=== PATIENT | female | born 1965 | race Caucasian/White ===

== ENCOUNTER 2024-04-06 19:30 | Emergency (ER) | payer OTHER, SELFPAY ==
[2024-04-06 19:38] VITALS: BP 122/84; PULSE 117; TEMP 37.3; O2SAT 98; BMI 34.9
--- NOTE | 2024-04-06 20:46 | ECG_ITS ---
[facility] Test Date: 2024-04-06 Pat Name: PINKY ARREDONDO Department: Room: - Gender: Female [employer] Di[employer] Registered Nurse: : [id number] Requested By: VINCENT SCHRADER Order Number: [id number] Reading MD: SANDRITA ESCOBAR Measurements Intervals [place] Rate: 115 P: 53 MD: 136 QRS: 60 QRSD: 66 T: 30 QT: 318 QTc: 386 Interpretive Statements 1120 Sinus tachycardia 8102 Low QRS voltage in chest leads 9150 abnormal ECG Compared to ECG 11/02/2020 09:14:38 Myocardial infarct finding now present Electronically Signed On 04-07-2024 7:13:00 EST by SANDRITA ESCOBAR
--- NOTE | 2024-04-06 20:47 | ED.ARRPALP1 ---
HPI - Arrhythmia/Palpitations General Chief Complaint: Arrhythmia/Palpitations Stated Complaint: high heart rate Time Seen by Provider: 04/06/24 20:14 Source: patient Mode of arrival: walk-in Limitations: no limitations History of Present Illness HPI narrative: Patient is a 58-year-old female who presents to the emergency department for palpitations that she noticed this evening. She states when she is up and walking she noticed her heart rate went into the 120s. Laying flat, her heart rate goes down to the 90s. She states she does not drink caffeine, in 2020 she had COVID and found that she had palpitations with caffeine show she stopped drinking it. She has not had any other focal medical complaints or recent illness. She has had no fevers or upper respiratory symptoms, no vomiting or diarrhea. She denies peripheral edema. She has a sensation of palpitations but no specific chest pain or shortness of breath. She does not take any medications at home, she has no other medical problems and denies tobacco abuse. Related Data Allergies Allergy/AdvReac Type Severity Reaction Status Date / Time diphenhydramine (From Allergy Intermediate BRADYCARDIA Verified 04/06/24 19:37 Benadryl) doxycycline Allergy Intermediate Headache Verified 04/06/24 19:37 Review of Systems ROS Constitutional Denies: fever or chills Ears, nose, mouth, and throat Denies: throat pain or nasal congestion Cardiovascular Denies: chest pain Respiratory Denies: shortness of breath Gastrointestinal Denies: nausea, vomiting or diarrhea Musculoskeletal Denies: back pain Integumentary/Breast Denies: rash Neurological Denies: headache, numbness in extremities or weakness in extremities Hematologic/Lymphatic Denies: easy bruising or easy bleeding [facility] Social History Little interest or pleasure in doing things: not at all Feeling down, depressed, or hopeless: not at all Exam Narrative Exam Narrative: Gen.: Awake, alert, in no distress Head: Normocephalic, atraumatic ENT: Moist mucous membranes Respiratory: No respiratory distress, lungs clear bilaterally Cardio: Regular rate and rhythm Gastrointestinal: Abdomen is soft, nondistended and nontender to palpation Extremities: Moves extremities equally Psych: Normal mood and affect Neuro: No focal neuro deficit Skin: Warm, dry, intact Constitutional Vital Signs, click to edit/add: Last Vital Signs Temp 99.2 F 04/06/24 19:38 Pulse 117 H 04/06/24 19:38 Resp 16 04/06/24 19:38 BP 122/84 04/06/24 19:38 Pulse Ox 98 04/06/24 19:38 O2 Del Method Room Air 04/06/24 19:38 Course Vital Signs Vital signs: Vital Signs Temperature 99.2 F 04/06/24 19:38 Pulse Rate 117 H 04/06/24 19:38 Respiratory Rate 16 04/06/24 19:38 Blood Pressure 122/84 04/06/24 19:38 Pulse Oximetry 98 04/06/24 19:38 Oxygen Delivery Method Room Air 04/06/24 19:38 Temperature 99.2 F 04/06/24 19:38 Pulse Rate 117 H 04/06/24 19:38 Respiratory Rate 16 04/06/24 19:38 Blood Pressure 122/84 04/06/24 19:38 Pulse Oximetry 98 04/06/24 19:38 Oxygen Delivery Method Room Air 04/06/24 19:38 MDM - Arrhythmia/Palpitations MDM Narrative Medical decision making narrative: Initial EKG performed in triage shows sinus tachycardia. Patient with no active chest pain or shortness of breath at this time. 8: IV fluids initiated, vital signs are stable at this time. The remainder of the lab workup is pending including respiratory swabs and chest x-ray. Case is turned over to attending physician at this time. SHARED APC VISIT, PHYSICIAN ATTESTATION: [id number] I performed a substantive part of the MDM during the patient?s E/M visit. I personally evaluated and examined the patient. I personally made or approved the documented management plan and acknowledge its risk of complications. JK 10:10 pm her workup is negative including the chest x-ray and blood work. She was given IV fluids and her heart rate came down and she is able to be discharged home. Treatment diagnosis and follow-up were discussed with the patient. Differential Diagnosis Differential diagnosis: Likely palpitations, anxiety and sinus tachycardia Medical Records Attestation: I reviewed the patient's medical records. Lab Data Attestation: I reviewed the patient's lab results. Labs: Lab Results 04/06/24 04/06/24 Range/Units 20:35 21:01 WBC 10.9 (4.0-11.0) 10^3/uL RBC 4.83 (4.20-5.40) 10^6/uL Hgb 14.7 (12.0-16.0) g/dL Hct 42.9 (36.0-48.0) % MCV 88.8 (81.0-99.0) fL MCH 30.4 (26.7-34.0) pg MCHC 34.3 (29.9-35.2) g/dL RDW 12.9 (11.0-15.0) % Plt Count 284 (150-450) 10^3/uL MPV 9.7 (9.5-13.5) fL Neut % (Auto) 67.6 (43.0-75.0) % Lymph % (Auto) 23.9 (20.5-60.0) % [place] % (Auto) 6.7 (1.7-12.0) % Eos % (Auto) 1.2 (0.9-7.0) % Baso % (Auto) 0.4 (0.2-2.0) % Neut # (Auto) 7.4 H (1.4-6.5) 10^3/uL Lymph # (Auto) 2.6 (1.2-3.8) 10^3/uL [place] # (Auto) 0.7 (0.3-0.8) 10^3/uL Eos # (Auto) 0.1 (0.0-0.7) 10^3/uL Baso # (Auto) 0.0 (0.0-0.1) 10^3/uL Abs Immat Gran (auto) 0.02 (0.00-0.03) 10^3/uL Imm/Tot Granulo (auto) 0.2 (0.0-0.5) % PT 10.1 (9.0-11.6) sec INR 0.95 D-Dimer 0.23 (<=0.59) mg/L FEU Sodium 137 (136-145) mmol/L Potassium 3.8 (3.5-5.1) mmol/L Chloride 102 (98-107) mmol/L Carbon Dioxide 25.0 (21.0-32.0) mmol/L Anion Gap 13.8 BUN 17.0 (7.0-18.0) mg/dL Creatinine 0.97 (0.55-1.02) mg/dL Est GFR ( Amer) >60 (>=60 mL/min/1.73m^2) Est GFR (Non-Af Amer) 59 L (>=60 mL/min/1.73m^2) BUN/Creatinine Ratio 17.5 Glucose 186 H (74-106) mg/dL Lactate 2.0 (0.4-2.0) mmol/L Calcium 9.4 (8.5-10.1) mg/dL Magnesium 2.1 (1.8-2.4) mg/dL Total Bilirubin 0.3 (0.2-1.0) mg/dL AST 9 L (15-37) U/L ALT 32 (14-59) U/L Alkaline Phosphatase 85 (46-116) U/L Troponin I High Sens 9.4 (4.0-51.3) pg/mL NT-Pro-B Natriuret Pep 22.0 (<=900.0) pg/mL Total Protein 7.4 (6.4-8.2) g/dL Albumin 3.7 (3.4-5.0) g/dL Globulin 3.7 g/dL Albumin/Globulin Ratio 1.0 TSH 2.550 (0.358-3.740) uIU/mL Influenza Type A Ag Negative Influenza Type B Ag Negative SARS-CoV-2 Ag (CV2AG) Negative (NEGATIVE) Imaging Data Chest x-ray: Radiologist's impression: Chest x-ray per radiologist shows no acute process seen in the chest ECG Data Attestation: I personally reviewed and interpreted this ECG as follows: (Sinus tachycardia at a rate of 115, no acute ST elevation or ectopy. EKG reviewed by attending physician) Discharge Plan Discharge Chief Complaint: Arrhythmia/Palpitations Clinical Impression: Palpitations, Dehydration Patient Disposition: Home, Self-Care Time of Disposition Decision: 22:12 Condition: Good Mode of Transportation: Private Vehicle Print Language: Wolof Instructions: Heart Palpitations (ED), Dehydration (ED) Referrals: Zari Girard MD [Primary Care Provider] - 1 week
[2024-04-06 20:53] LABS: Basophils Percent Auto 0.4 % (0.2-2.0); Eosinophils Absolute Auto 0.1 10^3/uL (0.0-0.7); Eosinophils Percent Auto 1.2 % (0.9-7.0); Hematocrit 42.9 % (36.0-48.0); Hemoglobin 14.7 g/dL (12.0-16.0); Immature Granulocytes Abs Auto 0.02 10^3/uL (0.00-0.03); Immature Granulocytes Pct Auto 0.2 % (0.0-0.5); Lymphocytes Absolute Auto 2.6 10^3/uL (1.2-3.8); Lymphocytes Percent Auto 23.9 % (20.5-60.0); Mean Corpuscular HGB Conc 34.3 g/dL (29.9-35.2); Mean Corpuscular Hemoglobin 30.4 pg (26.7-34.0); Mean Corpuscular Volume 88.8 fL (81.0-99.0); Mean Platelet Volume 9.7 fL (9.5-13.5); Monocytes Absolute Auto 0.7 10^3/uL (0.3-0.8); Monocytes Percent Auto 6.7 % (1.7-12.0); Neutrophils Absolute Auto 7.4 10^3/uL (1.4-6.5); Neutrophils Percent Auto 67.6 % (43.0-75.0); Platelet Count 284 10^3/uL (150-450); Red Blood Count 4.83 10^6/uL (4.20-5.40); Red Cell Distribution Width 12.9 % (11.0-15.0); White Blood Count 10.9 10^3/uL (4.0-11.0)
[2024-04-06] MEDS: 0.9 % SODIUM CHLORIDE 1,000 ML 999 ML IV (20:57)
[2024-04-06 21:01] LABS: D Dimer 0.23 mg/L FEU (<=0.59); INR 0.95; Prothrombin Time 10.1 sec (9.0-11.6)
[2024-04-06 21:16] LABS: Alanine Aminotransferase 32 U/L (14-59); Albumin Level 3.7 g/dL (3.4-5.0); Alkaline Phosphatase 85 U/L (46-116); Anion Gap 13.8; Aspartate Amino Transferase 9 U/L (15-37); BUN Creatinine Ratio 17.5; Bilirubin Total 0.3 mg/dL (0.2-1.0); Calcium 9.4 mg/dL (8.5-10.1); Chloride 102 mmol/L (98-107); Estimated GFR (African America >60 (>=60 mL/min/1.73m^2); Estimated GFR (Non-African Ame 59 (>=60 mL/min/1.73m^2); Globulin 3.7 g/dL; Glucose 186 mg/dL (74-106); Magnesium 2.1 mg/dL (1.8-2.4); Potassium 3.8 mmol/L (3.5-5.1); Sodium 137 mmol/L (136-145); Total Protein 7.4 g/dL (6.4-8.2)
[2024-04-06 21:17] LABS: Troponin I High Sensitivity 9.4 pg/mL (4.0-51.3)
[2024-04-06 21:19] LABS: Influenza Virus A Antigen Negative; Influenza Virus B Antigen Negative; Internal Control Within Normal Limits; SARS-CoV-2 Ag NEGATIVE (NEGATIVE)
[2024-04-06 22:24] VITALS: BP 133/94; PULSE 89; O2SAT 96
== END 2024-04-06 22:25 | disposition home or self-care (01) ==
PROVIDERS: Physician Assistant; Emergency Provider Emergency Medicine; PCP Family Medicine
DX: R00.2 Palpitations (principal); E86.0 Dehydration; R00.0 Tachycardia, unspecified
CPT/HCPCS: 36415; 71045; 80053; 83605; 83735; 83880; 84443; 84484; 85025; 85378; 85610; 87804; 87811; 93005; 96360; 99285

== ENCOUNTER 2024-11-01 08:32 | Outpatient (OUT) | payer OTHER, SELFPAY ==
--- OUTSIDE RECORDS SUMMARY | 2024-11-01 08:45 | XMS_ITS | CCD ---
Author Organization [facility] Care Team Providers Care Principal Accounts Clerk Name Role Phone CHRISTINA FONSECA Attending Unavailable CHRISTINA FONSECA Admitting Unavailable DR VINCENT SCHRADER Primary Care Unavailable DR MARIE GONCALVES Consulting Unavailable CHRISTINA FONSECA Consulting Unavailable Pawel Lacy DO Primary Care Provider Pawel Lacy DO Attending Provider Pawel Lacy DO Other Provider [phone] Rahat Hernandez MD Attending Provider Pawel Lacy Attending Unavailable Pawel Lacy Primary Care Unavailable Pawel Lacy Admitting Unavailable Allergies Allergy Classification Reported Allergen(s) Allergy Type Date of Onset Reaction(s) Facility (1 source) Sucralfate Drug Allergy 07-25-2015 [facility] Repository (1 source) Doxycycline Drug Allergy 10-26-2024 [facility] Repository Problems Problem Classification Problem Date Documented Da te Episodic/Chronic Administrative/social admission (4 sources) First encounter by subject; Translations: [Persons encountering health services in other specified circumstances] 10-26-2024 Episodic Cardiac dysrhythmias (5 sources) Tachycardia; Translations: [Tachycardia, unspecified] Onset: 10-26-2024 10-26-2024 Episodic Other lower respiratory disease (4 sources) Shortness of breath; Translations: [SHORTNESS OF BREATH] Onset: 11-02-2020 Episodic Other non-traumatic joint disorders (2 sources) Pain in right shoulder; Translations: [Right shoulder pain] 10-26-2024 Episodic Other nutritional; endocrine; and metabolic disorders (4 sources) Body mass index 30+ - obesity; Translations: [Obesity, unspecified] 10-26-2024 Chronic Other screening for suspected conditions (not mental disorders or infectious disease) (12 sources) Patient encounter status; Translations: [Encounter for screening for diabetes mellitus] 10-26-2024 Episodic Spondylosis; intervertebral disc disorders; other back problems (2 sources) Low back pain; Translations: [Lumbar back pain] 10-26-2024 Episodic Unclassified (4 sources) Patient encounter status; Translations: [Z12.11 - Encounter for screening for malignant neoplasm of colon] Viral infection (1 source) COVID-19; Translations: [COVID-19] Onset: 11-06-2020 Results Test Name Value Interpretation Reference Range Facil ity FPG ECG *PCP OFFICE ONLY*on 10-26-2024 FPG ECG *PCP OFFICE ONLY* [facility] [place] [address] [place] [address] Electrocardiograph Report Signed Patient: Shira Whitney MR#: [id number] 8 : 1965 Acct:[id number] Age/Sex: 59 / F ADM Date: 10/26/24 Loc: EKGCAST Room: Type: [facility] Attending Dr: Pawel Lacy DO Ordering Provider: Pawel Lacy DO Date of Service: 10/26/2411/11/930 ECG/FPG ECG *PCP OFFICE ONLY*: R00.0 - Tachycardia, unspecified Copies to: Test Reason : Blood Pressure : */* mmHG Vent. Rate : 89 BPM Atrial Rate : 89 BPM P-R Int : 138 ms QRS Dur : 68 ms QT Int : 368 ms P-R-T Axes : 47 9 26 degrees QTcB Int : 447 ms Normal sinus rhythm Low voltage QRS Cannot rule out Anterior infarct , age undetermined Abnormal ECG No previous ECGs available Confirmed by Rahat Hernandez ([id number]) on 10/26/2024 12:02:12 PM Referred By: Electronically Signed By: Rahat Hernandez Transcribed By: MUS Signed By Rahat Hernandez MD 10/26/24 1202 Normal [facility] CBC AUTO DIFFon 11-02-2020 BASO # 0.0 103/ul Normal 0.0-0.1 [facility] Comment on above: Performed By: #### C BC #### [facility] [address] [place] [address] Dr. Murali Camarillo Basophils/100 WBC (Bld) 0.3 % Normal 0.2-2.0 [facility] Comment on above: Performed By: #### C BC #### [facility] [address] [place] [address] Dr. Murali Camarillo EO # 0.0 103/ul Normal 0.0-0.7 [facility] Comment on above: Performed By: #### C BC #### [facility] [address] [place] [address] Dr. Murali Camarillo Eosinophils/100 WBC (Bld) 0.4 % Critically low 0.9-7.0 [facility] Comment on above: Performed By: #### C BC #### [facility] [address] [place] [address] Dr. Murali Camarillo Erythrocyte distribution width (RBC) [Ratio] 12.9 % Normal 11.0-15.0 [facility] Comment on above: Performed By: #### C BC #### [facility] [address] [place] [address] Dr. Murali Camarillo Hematocrit (Bld) [Volume fraction] 43.9 % Normal 36.0-48.0 [facility] Comment on above: Performed By: #### C BC #### [facility] [address] [place] [address] Dr. Murali Camarillo Hemoglobin (Bld) [Mass/Vol] 14.4 g/dL Normal 12.0-16.0 [facility] Comment on above: Performed By: #### C BC #### [facility] [address] [place] [address] Dr. Murali Camarillo IG # 0.04 10e3/ul Critically high 0.00-0.03 [facility] Comment on above: Performed By: #### C BC #### [facility] [address] [place] [address] Dr. Murali Camarillo IG % 0.5 % Normal 0.0-0.5 [facility] Comment on above: Performed By: #### C BC #### [facility] [address] [place] [address] Dr. Murali Camarillo LYMPH # 1.1 103/ul Critically low 1.2-3.8 [facility] Comment on above: Performed By: #### C BC #### [facility] [address] [place] [address] Dr. Murali Camarillo Lymphocytes/100 WBC (Bld) 13.7 % Critically low 20.5-60.0 [facility] Comment on above: Performed By: #### C BC #### [facility] [address] [place] [address] Dr. Murali Camarillo MANUAL DIFF REQ NO Normal [facility] Comment on above: Performed By: #### C BC #### [facility] [address] [place] [address] Dr. Murali Camarillo MCH (RBC) [Entitic mass] 29.2 pg Normal 26.7-34.0 [facility] Comment on above: Performed By: #### C BC #### [facility] [address] [place] [address] Dr. Murali Camarillo MCHC (RBC) [Mass/Vol] 32.8 g/dL Normal 29.9-35.2 [facility] Comment on above: Performed By: #### C BC #### [facility] [address] [place] [address] Dr. Murali Camarillo MCV (RBC) [Entitic vol] 89.0 fL Normal 81.0-99.0 [facility] Comment on above: Performed By: #### C BC #### [facility] [address] [place] [address] Dr. Murali Camarillo MONO # 0.5 103/ul Normal 0.3-0.8 [facility] Comment on above: Performed By: #### C BC #### [facility] [address] [place] [address] Dr. Murali Camarillo Monocytes/100 WBC (Bld) 6.2 % Normal 1.7-12.0 [facility] Comment on above: Performed By: #### C BC #### [facility] [address] [place] [address] Dr. Murali Camarillo NEUT # 6.3 103/ul Normal 1.4-6.5 [facility] Comment on above: Performed By: #### C BC #### [facility] [address] [place] [address] Dr. Murali Camarillo Neutrophils/100 WBC (Bld) 78.9 % Critically high 43.0-75.0 [facility] Comment on above: Performed By: #### C BC #### [facility] [address] [place] [address] Dr. Murali Camarillo Platelet mean volume (Bld) [Entitic vol] 9.5 fL Normal 9.5-13.5 [facility] Comment on above: Performed By: #### C BC #### [facility] [address] [place] [address] Dr. Murali Camarillo PLT 234 103/ul Normal 150-450 [facility] Comment on above: Performed By: #### C BC #### [facility] [address] [place] [address] Dr. Murali Camarillo RBC 4.93 106/ul Normal 4.20-5.40 [facility] Comment on above: Performed By: #### C BC #### [facility] [address] [place] [address] Dr. Murali Camarillo WBC 7.9 103/ul Normal 4.0-11.0 [facility] Comment on above: Performed By: #### C BC #### [facility] [address] [place] [address] Dr. Murali Camarillo CTA CHEST WO W CONon 021 CTA CHEST WO W CON EXAMINATION: CTA CHEST WO W CON HISTORY: SHORTNESS OF BREATH , cough COMPARISON: No relevant comparison available. TECHNIQUE: Multi-planar CT images were created with IV contrast. Axial, Coronal, and Sagittal images. Dose reduction techniques were achieved by using automated exposure control and/or adjustment of mA and/or kV according to patient size and/or use of iterative reconstruction technique. 3-D reconstruction was performed on a separate workstation. FINDINGS: VASCULATURE: No pulmonary embolism or abnormal opacity. LUNGS: Scattered mild patchy infiltrates bilaterally. Atelectasis versus infiltrates within the posterior lung bases. PLEURA: No mass, effusion, or pneumothorax. DESTINI: No mass or adenopathy. MEDIASTINUM: No mass or adenopathy. CARDIAC: No enlargement, pericardial effusion, or pericardial thickening. AORTA: No aneurysm or dissection. CHEST WALL: No mass or axillary adenopathy. BONES: No bone lesion or fracture. LIMITED ABDOMEN: Fatty infiltration of liver. No suspicious findings. Limited images of the upper abdomen. OTHER: Negative. IMPRESSION: 1. No pulmonary embolism. 2. Mild bilateral patchy infiltrates; atelectasis versus pneumonia. Electronically authenticated by: MARIE GONCALVES Date: 2020-11-02 11:22 Normal [facility] PROF CHEM 8 (BAS METB)on Anion gap [Moles/Vol] 13.0 mmol/L Normal [facility] Comment on above: Performed By: #### B MP #### [facility] [address] [place] [address] Dr. Murali Camarillo Calcium [Mass/Vol] 8.7 mg/dL Normal 8.4-10.2 [facility] Comment on above: Performed By: #### B MP #### [facility] [address] [address] [address] Murali Camarillo Chloride [Moles/Vol] 100 mmol/L Normal 98-107 [facility] Comment on above: Performed By: #### B MP #### [facility] [address] [address] [address] Murali Camarillo CO2 [Moles/Vol] 27.7 mmol/L Normal 22.0-30.0 [facility] Comment on above: Performed By: #### B MP #### [facility] [address] [address] [address] Murali Camarillo Creatinine [Mass/Vol] 0.91 mg/dL Normal 0.52-1.04 [facility] Comment on above: Performed By: #### B MP #### [facility] [address] [address] [address] Murali Camarillo EGFR-AF BAHRAINI >60 Normal >=60 [facility] Comment on above: Performed By: #### B MP #### [facility] [address] [address] [address] Murali Camarillo EGFR-NON AF BAHRAINI >60 Normal >=60 [facility] Comment on above: Performed By: #### B MP #### [facility] [address] [address] [address] Murali Camarillo Glucose [Mass/Vol] 145 mg/dL Critically high 74-106 [facility] Comment on above: Performed By: #### B MP #### [facility] [address] [address] [address] Murali Camarillo Potassium [Moles/Vol] 3.7 mmol/L Normal 3.4-5.0 [facility] Comment on above: Performed By: #### B MP #### [facility] [address] [address] [address] Murali Camarillo Sodium [Moles/Vol] 137 mmol/L Normal 137-145 [facility] Comment on above: Performed By: #### B MP #### [facility] [address] [address] [address] Murali Camarillo Urea nitrogen [Mass/Vol] 8.0 mg/dL Normal 7.0-17.0 [facility] Comment on above: Performed By: #### B MP #### [facility] [address] [address] [address] Murali Camarillo Urea nitrogen/Creatinine [Mass ratio] 8.8 mg/mg Normal [facility] Comment on above: Performed By: #### B MP #### [facility] [address] [address] [address] Murali Camarillo XR CHEST 1 Von 11-02-2020 XR CHEST 1 V EXAMINATION: XR CHEST 1 V HISTORY: SHORTNESS OF BREATH , cough, tachycardia, weakness COMPARISON: No relevant comparison available. FINDINGS: LUNGS: Markedly underexpanded lungs. Trace amount of stranding within left lung base. VASCULATURE: No increased pulmonary vasculature. PLEURA: No pneumothorax, effusion, or pleural thickening. CARDIAC: No cardiomegaly or cardiac silhouette abnormality. MEDIASTINUM: No visible mass or adenopathy. BONES: No fracture or visible bone lesion. OTHER: Negative. IMPRESSION: 1. Low lung volume examination with trace amount of left basilar atelectasis versus infiltrates. Electronically authenticated by: MARIE GONCALVES Date: 2020-11-02 10:07 Normal [facility] Vital Signs Date Time Vital Sign Value Performing Clinician [place] [facility] 10-26-2024 08:43-0400 Body height 165.1 cm Pawel Denihan DO Work Phone: [facility] 10-26-2024 08:43-0400 Body mass index (BMI) [Ratio] 36.9 kg/m2 Pawel Denihan DO Work Phone: [facility] 10-26-2024 08:43-0400 Body weight 100.69 kg Pawel Denihan DO Work Phone: [facility] 10-26-2024 08:43-0400 Diastolic blood pressure 104 mm[Hg] Pawel Denihan DO Work Phone: [facility] 10-26-2024 08:43-0400 Diastolic blood pressure 92 mm[Hg] Pawel Denihan DO Work Phone: [facility] 10-26-2024 08:43-0400 Heart rate 101 /min Pawel Denihan DO Work Phone: [facility] 10-26-2024 08:43-0400 Respiratory rate 18 /min Pawel Denihan DO Work Phone: [facility] 10-26-2024 08:43-0400 SaO2% (BldA) [Mass fraction] 94 % Pawel Denihan DO Work Phone: [facility] 10-26-2024 08:43-0400 SaO2% (BldA) [Mass fraction] 97 % Pawel Denihan DO Work Phone: [facility] 10-26-2024 08:43-0400 Systolic blood pressure 142 mm[Hg] Pawel Denihan DO Work Phone: [facility] 10-26-2024 08:43-0400 Systolic blood pressure 136 mm[Hg] Pawel Denihan DO Work Phone: [facility] Encounters Encounter Date Encounter Type Care Provider Facility Start: 10-26-2024 End: 10-26-2024 ambulatory Pawel Lacy Facility:[facility] Start: 10-26-2024 Non-patient / Non-visit Rahat Hernandez MD -[facility] Work Phone: Start: 10-26-2024 Patient encounter procedure Pawel Lacy -EKG [facility] Start: 10-26-2024 End: 10-26-2024 ambulatory Pawelnolan Lacy DO Work Phone: [facility] Work Phone: Start: 10-26-2024 End: 10-26-2024 Patient encounter procedure Pawel Lilizlucy -FPG [facility] Work Phone: Start: 11-02-2020 End: 11-02-2020 ambulatory CHRISTINA Tye RAYMUNDO Facility: Plan of Treatment Date Care Activity Detail Author Start: 10-26-2024 Patient referral [facility] Work Phone: Start: 10-26-2024 [facility] Comprehensive metabo lic 2000 panel - Serum or Plasma [facility] Holter monitor study [facility] MG Breast - bilateral Screening [facility] Patient referral [facility] Work Phone: Payers Date Payer Category Payer Self-pay 2024 Unknown [id number] 1965 Unknown [id number] 1961 Unknown [id number] Unknown [id number] Social History Date Type Detail Facility Start: 10-26-2024 [facility] Sex Female (finding) [facility] Start: 1965 Sex Assigned At Female F [facility] Evaluation note 10-26-2024 Note Date & Type Note Facility 10-26-2024 Evaluation note Diagnosis Onset Date Resolution Establishing care with new doctor, encounter for acute October 26 025 8:29am Obesity (BMI 35.0-39.9 without comorbidity) acute October 262024 8:29am Screening for cardiovascular condition acute Septemb er 2024 8:29am Screening for diabetes mellitus acute October 26 025 8:29am Tachycardia acute October 8:29am Colon cancer screening noneactive Se ptember 2024 8:29am Breast cancer screening by mammogram noneactive October 26 025 8:29am [facility] Work Phone: Evaluation note 10-26-2024 Note Date & Type Note Facility 10-26-2024 Evaluation note Diagnosis Onset Date Resolution Establishing care with new doctor, encounter for acute October 26 8:29am Obesity (BMI 35.0-39.9 without comorbidity) acute October 262024 8:29am Screening for cardiovascular condition acute Sept er 2024 8:29am Screening for diabetes mellitus acute October 26 025 8:29am Tachycardia acute October 8:29am Colon cancer screening noneactive Se ptember 2024 8:29am Breast cancer screening by mammogram noneactive October 26 025 8:29am [facility] Work Phone: Hospital Discharge instructions Note Date & Type Note Facility Hospital Discharge instructions Ambulatory OrdersReferral to Gastroenterology Location: None Selected [facility] Work Phone: Summary Purpose Family History No Family History Records Found Relationship Condition Age at Onset Recorded Date/T yina mother Diabetes mellitus Unknown Malignant neoplasm Unknown Malignant neoplasm of kidney Unknown Hypertension Unknown Goiter Unknown Obesity Unknown father Malignant neoplasm Unknown Malignant neoplasm of throat Unknown grandparent Malignant neoplasm of ovary Unknown Advance Directives No Advanced Directives Records Found Advance Directive Response Recorded Date/ Time Advance Directives No October 11:38am Chief Complaint and Reason for Visit Chief Complaint Admit Date establish care October 26, 2024 8:29am Reason for Visit Admit Date Establishing care with new doctor, lilo hall for October 26, 2024 8:29am Obesity (BMI 35.0-39.9 without comorbidi ty) October 26, 2024 8:29am Screening for cardiovascular condition S prachi 2024 8:29am Screening for diabetes mellitus Sung naranjo 2024 8:29am Tachycardia October 26, 2024 8:29am Colon cancer screening October 26 8:29am [facility] Additional Source Comments INFORMATION SOURCE (unrecogn ized section and content) DATE CREATED AUTHOR 11/06/2020 [facility] DATE CREATED AUTHOR AUTHOR'S ORGANIZ ATION 10/31/2024 [facility] Care Teams (unrecognized sec tion and content) Team Status: Active Member Role Status Dates Pawel Lacy DO Primary Care Provider Active Team Status: Inactive Member Role Status Dates Pawel Lacy DO Primary Care Provider Active Start: October 26, 2024 End: October 26, 2024 Pawel Lacy DO Attending Provider Active St art: October 26, 2024 End: October 26, 2024 Team Status: Active Member Role Status Dates Pawel Lacy DO Primary Care Provider Active Start: October 26, 2024 Pawel Lacy DO Attending Provider Active St art: October 26, 2024 Team Status: Active Member Role Status Dates Pawel Lacy DO Primary Care Provider Active Start: October 26, 2024 Pawel Lacy DO Other Provider Active Start: October 26, 2024 Rahat Hernandez MD Attending Provider Activ e Start: October 26, 2024 Goals (unrecognized section and content) Goals may be documented in a n alternate sectionGoals may be documented in an alternate section FOR RECORDS PERTAINING TO PATIENTS WHO ARE OR HAVE BEEN ENROLLED IN A CHEMICAL DEPENDENCY/SUBSTANCEABUSE PROGRAM, SOME INFORMATION MAY BE OMITTED. This clinical summary was aggregated from multiple sources. Caution should be exercised in using it in the provision of clinical care. This summary normalizes information from multiple sources, and as a consequence, information in this document may materially change the coding, format and clinical context of patient data. In addition, data may be omitted in some cases. CLINICAL DECISIONS SHOULD BE BASED ON THE PRIMARY CLINICAL RECORDS. [facility] provides no warranty or guarantee of the accuracy or completeness of information in this document.
[2024-11-01 09:04] LABS: Hematocrit 45.4 % (36.0-48.0); Hemoglobin 15.3 g/dL (12.0-16.0); Immature Granulocytes Abs Auto 0.03 10^3/uL (0.00-0.03); Immature Granulocytes Pct Auto 0.3 % (0.0-0.5); Lymphocytes Absolute Auto 2.0 10^3/uL (1.2-3.8); Mean Corpuscular HGB Conc 33.7 g/dL (29.9-35.2); Mean Corpuscular Hemoglobin 30.5 pg (26.7-34.0); Mean Corpuscular Volume 90.4 fL (81.0-99.0); Platelet Count 280 10^3/uL (150-450); Red Blood Count 5.02 10^6/uL (4.20-5.40); White Blood Count 8.9 10^3/uL (4.0-11.0)
[2024-11-01 09:56] LABS: Alanine Aminotransferase 102 U/L (14-59); Albumin Globulin Ratio 1.1; Albumin Level 4.1 g/dL (3.4-5.0); Alkaline Phosphatase 79 U/L (46-116); Anion Gap 12.7; Aspartate Amino Transferase 45 U/L (15-37); Blood Urea Nitrogen 16.0 mg/dL (7.0-18.0); Calcium 9.1 mg/dL (8.5-10.1); Carbon Dioxide 28.4 mmol/L (21.0-32.0); Chloride 104 mmol/L (98-107); Cholesterol 268 mg/dL (<=200); Estimated GFR (African America >60 (>=60 mL/min/1.73m^2); Estimated GFR (Non-African Ame 54 (>=60 mL/min/1.73m^2); Globulin 3.8 g/dL; Glucose 146 mg/dL (74-106); HDL Cholesterol 46 mg/dL (40-60); Potassium 4.1 mmol/L (3.5-5.1); Sodium 141 mmol/L (136-145); Thyroid Stimulating Hormone 1.256 uIU/mL (0.358-3.740); Total Protein 7.9 g/dL (6.4-8.2); Triglycerides 177 mg/dL (<=150); VLDL CHOLESTEROL 35.4 mg/dL
== END 2024-11-01 08:33 | disposition home or self-care (01) ==
LOC: LAB 08:35
DX: R00.0 Tachycardia, unspecified (principal); Z76.89 Persons encountering health services in other specified circumstances; Z13.6 Encounter for screening for cardiovascular disorders; E66.9 Obesity, unspecified; Z13.1 Encounter for screening for diabetes mellitus
CPT/HCPCS: 36415; 80053; 80061; 83036; 84439; 84443; 85025

== ENCOUNTER 2024-11-09 14:58 | Outpatient (OUT) | payer OTHER, SELFPAY ==
--- OUTSIDE RECORDS SUMMARY | 2024-11-09 15:00 | XMS_ITS | Continuity of Care Document ---
Author Organization [facility] Address [address] [place] [address] Phone Care Team Providers Care Lithographic Artist Name Role Phone Pawel Lacy DO Primary Care Provider Pawel Lacy DO Attending Provider [phone] Pawel Lacy DO Other Provider Rahat Hernandez MD Attending Provider Care Teams Patient Care Team Team Status: Active Member Role Status Dates Pawel Lacy DO Primary Care Provider Active Visit Care Team Team Status: Inactive Member Role Status Dates Pawel Lacy DO Primary Care Provider Active Start: October 26, 2024 End: October 26, 2024 Pawel Lacy DO Attending Provider Active St art: October 26, 2024 End: October 26, 2024 Visit Care Team Team Status: Active Member Role Status Dates Pawel Lacy DO Primary Care Provider Active Start: October 26, 2024 Pawel Lacy DO Other Provider Active Start: October 26, 2024 Rahat Hernandez MD Attending Provider Activ e Start: October 26, 2024 Chief Complaint and Reason for Visit Chief Complaint Admit Date establish care October 26, 2024 8:29am Reason for Visit Admit Date Establishing care with new doctor, lilo hall for October 26, 2024 8:29am Obesity (BMI 35.0-39.9 without comorbidi ty) October 26, 2024 8:29am Screening for cardiovascular condition S eptember 2024 8:29am Screening for diabetes mellitus e r 2024 8:29am Tachycardia October 26, 2024 8:29am Colon cancer screening October 26 8:29am Breast cancer screening by mammogram [facility] 2024 8:29am Reason for Referral Referring Provider Name Referring Provider Address Referring Provider Phone Referral Date Requested Appointment Date Referral Reason Pawel Lacy [address] [address] Work Phone: October 26, 2024 Z12.11 - Encounter for screening for malignant neoplasm of colon October 26, 2024 Z12.11 - Encounter for screening for malignant neoplasm of colon Allergies, Adverse Reactions, Alerts Allergen Type Severity Reaction Last Updated Verified Status doxycycline Adverse Reaction Unknown [facility] 8:44am Yes Active Social History Smoking Status Status Start Date End Date Date of Observa tion Never smoked tobacco (finding) October 26, 2024 8:50am Observation Status Observation Response Date of Response Legal Sex Female (finding) Sex Assigned At Female May Family History Relationship Condition Age at Onset Recorded Date/T yina mother Diabetes mellitus Unknown Malignant neoplasm Unknown Malignant neoplasm of kidney Unknown Hypertension Unknown Goiter Unknown Obesity Unknown father Malignant neoplasm Unknown Malignant neoplasm of throat Unknown grandparent Malignant neoplasm of ovary Unknown Malignant neoplasm Unknown Problems Active Problems Medical Problem Onset Date Status Screening for diabetes mellitus Unknown Active Screening for cardiovascular condition Unknown Active Establishing care with new doctor, encounter for Unknown Active Tachycardia Unknown Active Obesity (BMI 35.0-39.9 without comorbidity) Unkn own Active Lumbar pain Unknown Active Right shoulder pain Unknown Active Medications No known medications Vital Signs Vital Reading Result Reference Range Collection Date/Time Height 65 [in_i] October 26, 2024 8:43am Weight 100.69 kg October 26, 2024 8:43am Heart Rate 101 /min 60-100 October 26, 2024 8:43am Respiratory rate 18 /min 12-24 October 262024 8:43am Oxygen saturation by Pulse oximetry 97 % 95-100 October 26, 2024 8:43am BP Systolic 136 mm[Hg] 100-140 October 26, 2024 8:43am BP Diastolic 92 mm[Hg] 60-100 October 26, 2024 8:43am BMI (Body Mass Index) 36.9 kg/m2 Sept2024 8:43am Advance Directives Advance Directive Response Recorded Date/ Time Advance Directives No October 3:34pm Insurance Providers Guarantor Shira Whitney Address [address] [place] [id number] Contact Info. Home Phone: Payer Policy Id Subscriber's Name Subscriber Id Effectiv e Date Expiration Date MMO [id number] Shira Whitney [id number] Encounters Encounter Location(s) Arrival/Admit Date Discharge/Depart Date Provider(s) Departed Physician/Prov ider Office Visit -[facility] Family Medicine [place] October 26, 2024 8:29am October 26, 2024 9:51am Pawel Lacy DO Non-patient / Non-visit -[facility] Cardiology October 26, 2024 9:31am Rahat Hernandez MD Recent Diagnosis Onset Date Admit Date Establishing care with new d wm, encounter for Unknown October 26, 2024 8:29am Obesity (BMI 35.0-39.9 without comorbidity) Unkn own October 26, 2024 8:29am Screening for cardiovascular condition Unknown October 26, 2024 8:29am Screening for diabetes mellitus Unknown October 26, 2024 8:29am Tachycardia Unknown October 26 8:29am Colon cancer screening Unknown October 26, 2024 8:29am Breast cancer screening by mammogram Unknown October 26, 2024 8:29am Assessments Diagnosis Onset Date Resolution Status Admit Date Establishing care with new doctor, encounter for acute October 26, 2024 8:29am Obesity (BMI 35.0-39.9 without comorbidity) acute October 262024 8:29am Screening for cardiovascular condition acute October 26 8:29am Screening for diabetes mellitus acute October 26 8:29am Tachycardia acute October 8:29am Colon cancer screening noneactive [facility]2024 8:29am Breast cancer screening by mammogram noneactive October 26 8:29am Plan of Treatment Author Pawel Lacy [facility] Authored October 26, 2024 11:54am As noted in the HPI, patient establishing care with me after previously seeing Dr. Zari Girard at [facility] in [place], but again has not seen a PCP in at least 4 years. She is overdue for colon and breast cancer screening and is agreeable to both of these, therefore appropriate orders/referrals have been placed. She has had a total hysterectomy secondary to fibroids and does not wish to pursue Paps anymore since this was a noncancerous reason for the hysterectomy. She has never smoked therefore is not a candidate for lung cancer screening. She is overdue for basic blood work and is agreeable to this, so orders have been placed. Discussed the importance of healthy diet, lifestyle and increasing exercise. Patient with intermittent tachycardia as described in the HPI. This is typically with exertion or occasionally changing positions. It does resolve on its own after resting for short period of time. EKG obtained in the office today showed a normal sinus rhythm with QTc of 447, ventricular rate of 89 and no evidence of STEMI. This may likely be related to deconditioning or possibly not hydrating up during the day. However, patient may be going into intermittent arrhythmias, therefore we discussed obtaining a Holter monitor and patient is agreeable to this so the order has been placed. Will also add on thyroid to her labs to evaluate this as a possible cause. I have extremely low suspicion for ACS or an ischemic process at this time. We discussed potentially using medication such as beta-mariusz, but agreed to defer this for now and will start with this workup and continue to monitor her symptoms. Also discussed the importance of healthy diet, adequate hydration and increasing exercise. Warning signs discussed. She is to call with any questions or concerns. Patient states an understanding and is agreeable with this plan of care. See above plans. Emphasized healthy diet, increasing exercise and adequate hydration. Patient overdue for breast cancer screening and is agreeable to mammogram. Order has been placed. Patient has a never had a colon cancer screening done before. Discussed this today and she is agreeable for colonoscopy. Referral to GI for screening colonoscopy is in place. Future Tests Future scheduled test information is unavailable Pending Tests Test Name Ordered Date Scheduled Date Comprehensive Metabolic Panel October 26 9:32am CA holter monitor recording October 26, 2024 9:44am MM screening mammo BI w/CAD October 26, 2024 9:07am Future Visits Future appointment information is unavailable Referrals to Other Providers Reason for Referral Referral Start Date Provider Provider Contact Information Provider Address Z12.11 - Encounter for screening for malignant neoplasm of colon October 26, 2024 [facility] Work Phone: [phone] [phone] Future Procedures Procedure Name Ordered Date Scheduled Date A1C with Estimated Average Glu October 26 9:32am Complete Blood Count Auto Diff October 26 9:07am Lipid Panel October 26, 2024 9:07am Free T4 (Free Thyroxine) October 26, 2024 9:0 7am Thyroid Stimulating Hormone October 26, 2024 9:07am Future Medications Future medication information is unavailable Patient Instructions Patient instructions are unavailable Hospital Discharge Instructions Ambulatory Orders* Referral to Gastroenterology Location: None Selected
--- NOTE | 2024-11-09 15:02 | MM_ITS ---
Patient Name: PINKY ARREDONDO MR#: [id number] : 1965 Exam Date: 11/09/2024 Ordering Doctor: JAYANT NAM RADIOLOGY REPORT PROCEDURE: MM TOMOSYNTHESIS SCREENING BI COMPARISON: MG MAMM BESSY SCRN W CAD DIG, 05/31/2015. MG MAMM BESSY SCRN W CAD DIG, 03/08/2014. INDICATIONS: Screening for malignant neoplasm Calculator Name NCI Breast Cancer Risk Assessment Tool 5 Year Breast Cancer Risk 2.00% Lifetime Breast Cancer Risk 9.50% Personal Breast Cancer No Personal Ovarian Cancer No Treatments None Family Cancers Aunt-paternal with breast cancer at age ~75; Grandmother-maternal with ovarian cancer at age ~50; Grandfather-paternal with throat cancer at age 54. LOCATION: [facility] BREAST COMPOSITION: There are scattered areas of fibroglandular density. FINDINGS: DIAGNOSTIC CATEGORY 0--INCOMPLETE: NEED ADDITIONAL IMAGING EVALUATION. RIGHT BREAST: Focal asymmetry without early architectural distortion approximately 12 o'clock position of the right breast, middle depth . LEFT BREAST: No significant suspicious finding. RECOMMENDATIONS: ADDITIONAL MAMMOGRAPHIC VIEWS REQUIRED: RIGHT BREAST - spot-compression/true lateral views, possible ultrasound are recommended. Dictated by: Isaias Amin DO on 11/09/2024 at 16:13 Approved by: Isaias Amin DO on 11/09/2024 at 16:15
--- OUTSIDE RECORDS SUMMARY | 2024-11-09 15:02 | XMS_ITS | CCD ---
Author Organization [facility] Care Team Providers Care [place] Name Role Phone CHRISTINA FONSECA Attending Unavailable CHRISTINA FONSECA Admitting Unavailable DR VINCENT SCHRADER Primary Care Unavailable DR MARIE GONCALVES Consulting Unavailable CHRISTINA FONSECA Consulting Unavailable Pawel Lacy DO Primary Care Provider Pawel Lacy DO Attending Provider [phone] Pawel Lacy DO Other Provider Rahat Hernandez MD Attending Provider Pawel Lacy Attending Unavailable Pawel Lacy Primary Care Unavailable Pawel Lacy Admitting Unavailable Allergies Allergy Classification Reported Allergen(s) Allergy Type Date of Onset Reaction(s) Facility (1 source) Sucralfate Drug Allergy 07-25-2015 [facility] Repository (1 source) Doxycycline Drug Allergy 10-26-2024 [facility] Repository Problems Problem Classification Problem Date Documented [...] ONLY*on 10-26-2024 [facility] ECG *PCP OFFICE ONLY* [facility] Main [place] [address] [place] [address] Electrocardiograph Report Signed Patient: Shira Whitney MR#: [id number] 8 : 1965 Acct:[id number] Age/Sex: 59 / F ADM Date: 10/26/24 Loc: EKGCAST Room: Type: [facility] Attending Dr: Pawel Lacy DO Ordering Provider: [...] previous ECGs available Confirmed by Rahat Hernandez ([id number]) on 10/26/2024 12:02:12 PM Referred By: Electronically Signed By: Rahat Hernandez Transcribed By: MUS Signed By Rahat Hernandez MD 10/26/24 1202 Normal [facility] CBC AUTO DIFFon 11-02-2020 BASO # 0.0 103/ul Normal 0.0-0.1 [facility] Comment on above: Performed By: #### C BC #### [facility] [address] [place] [address] Dr. Murali Camarillo Basophils/100 WBC (Bld) 0.3 % Normal 0.2-2.0 [facility] Comment on above: Performed By: #### C BC #### [facility] [address] [place] [address] Dr. Murali Camarillo EO # 0.0 103/ul Normal 0.0-0.7 [facility] Comment on above: Performed By: #### C BC #### [facility] [address] [place] [address] Dr. Murali Camarillo Eosinophils/100 WBC (Bld) 0.4 % Critically low 0.9-7.0 [facility] Comment on above: Performed By: #### C BC #### [facility] [address] [place] [address] Dr. Murali Camarillo Erythrocyte distribution width (RBC) [Ratio] 12.9 % Normal 11.0-15.0 [facility] Comment on above: Performed By: #### C BC #### [facility] [address] [place] [address] Dr. Murali Camarillo Hematocrit (Bld) [Volume fraction] 43.9 % Normal 36.0-48.0 [facility] Comment on above: Performed By: #### C BC #### [facility] [address] [place] [address] Dr. Murali Camarillo Hemoglobin (Bld) [Mass/Vol] 14.4 g/dL Normal 12.0-16.0 [facility] Comment on above: Performed By: #### C BC #### [facility] [address] [place] [address] Dr. Murali Camarillo IG # 0.04 10e3/ul Critically high 0.00-0.03 [facility] Comment on above: Performed By: #### C BC #### [facility] [address] [place] [address] Dr. Murali Camarillo IG % 0.5 % Normal 0.0-0.5 [facility] Comment on above: Performed By: #### C BC #### [facility] [address] [place] [address] Dr. Murali Camarillo LYMPH # 1.1 103/ul Critically low 1.2-3.8 [facility] Comment on above: Performed By: #### C BC #### [facility] [address] [place] [address] Dr. Murali Camarillo Lymphocytes/100 WBC (Bld) 13.7 % Critically low 20.5-60.0 [facility] Comment on above: Performed By: #### C BC #### [facility] [address] [place] [address] Dr. Murali Camarillo MANUAL DIFF REQ NO Normal [facility] Comment on above: Performed By: #### C BC #### [facility] [address] [place] [address] Dr. Murali Camarillo MCH (RBC) [Entitic mass] 29.2 pg Normal 26.7-34.0 [facility] Comment on above: Performed By: #### C BC #### [facility] [address] [place] [address] Dr. Murali Camarillo MCHC (RBC) [Mass/Vol] 32.8 g/dL Normal 29.9-35.2 [facility] Comment on above: Performed By: #### C BC #### [facility] [address] [place] [address] Dr. Murali Camarillo MCV (RBC) [Entitic vol] 89.0 fL Normal 81.0-99.0 [facility] Comment on above: Performed By: #### C BC #### [facility] [address] [place] [address] Dr. Murali Camarillo MONO # 0.5 103/ul Normal 0.3-0.8 [facility] Comment on above: Performed By: #### C BC #### [facility] [address] [place] [address] Dr. Murali Camarillo Monocytes/100 WBC (Bld) 6.2 % Normal 1.7-12.0 [facility] Comment on above: Performed By: #### C BC #### [facility] [address] [place] [address] Dr. Murali Camarillo NEUT # 6.3 103/ul Normal 1.4-6.5 [facility] Comment on above: Performed By: #### C BC #### [facility] [address] [place] [address] Dr. Murali Camarillo Neutrophils/100 WBC (Bld) 78.9 % Critically high 43.0-75.0 [facility] Comment on above: Performed By: #### C BC #### [facility] [address] [place] [address] Dr. Murali Camarillo Platelet mean volume (Bld) [Entitic vol] 9.5 fL Normal 9.5-13.5 [facility] Comment on above: Performed By: #### C BC #### [facility] [address] [place] [address] Dr. Murali Camarillo PLT 234 103/ul Normal 150-450 [facility] Comment on above: Performed By: #### C BC #### [facility] [address] [place] [address] Dr. Murali Camarillo RBC 4.93 106/ul Normal 4.20-5.40 [facility] Comment on above: Performed By: #### C BC #### [facility] [address] [place] [address] Dr. Murali Camarillo WBC 7.9 103/ul Normal 4.0-11.0 [facility] Comment on above: Performed By: #### C BC #### [facility] [address] [place] [address] Dr. Murali Camarillo CTA CHEST WO W [...] by: MARIE GONCALVES Date: 2020-11-02 11:22 Normal [facility] PROF CHEM 8 (BAS METB)on Anion gap [Moles/Vol] 13.0 mmol/L Normal [facility] Comment on above: Performed By: #### B MP #### [facility] [address] [place] [address] Dr. Murali Camarillo Calcium [Mass/Vol] 8.7 mg/dL Normal 8.4-10.2 [facility] Comment on above: Performed By: #### B MP #### [facility] [address] [address] [address] Murali Camarillo Chloride [Moles/Vol] 100 mmol/L Normal 98-107 [facility] Comment on above: Performed By: #### B MP #### [facility] [address] [address] [address] Murali Camarillo CO2 [Moles/Vol] 27.7 mmol/L Normal 22.0-30.0 [facility] Comment on above: Performed By: #### B MP #### [facility] [address] [address] [address] Murali Camarillo Creatinine [Mass/Vol] 0.91 mg/dL Normal 0.52-1.04 [facility] Comment on above: Performed By: #### B MP #### [facility] [address] [address] [address] Murali Camarillo EGFR-AF HUNGARIAN >60 Normal >=60 [facility] Comment on above: Performed By: #### B MP #### [facility] [address] [address] [address] Murali Camarillo EGFR-NON AF HUNGARIAN >60 Normal >=60 [facility] Comment on above: Performed By: #### B MP #### [facility] [address] [address] [address] Murali Camarillo Glucose [Mass/Vol] 145 mg/dL Critically high 74-106 [facility] Comment on above: Performed By: #### B MP #### [facility] [address] [address] [address] Murali Camarillo Potassium [Moles/Vol] 3.7 mmol/L Normal 3.4-5.0 [facility] Comment on above: Performed By: #### B MP #### [facility] [address] [address] [address] Murali Camarillo Sodium [Moles/Vol] 137 mmol/L Normal 137-145 [facility] Comment on above: Performed By: #### B MP #### [facility] [address] [address] [address] Murali Camarillo Urea nitrogen [Mass/Vol] 8.0 mg/dL Normal 7.0-17.0 [facility] Comment on above: Performed By: #### B MP #### [facility] [address] [address] [address] Murali Camarillo Urea nitrogen/Creatinine [Mass ratio] 8.8 mg/mg Normal [facility] Comment on above: Performed By: #### B MP #### [facility] [address] [address] [address] Murali Camarillo XR CHEST 1 Von [...] by: MARIE GONCALVES Date: 2020-11-02 10:07 Normal [facility] Vital Signs Date Time Vital Sign Value Performing Clinician [place] [facility] 10-26-2024 08:43-0400 Body height 165.1 cm Pawel Denihan DO Work Phone: [facility] 10-26-2024 08:43-0400 Body mass index (BMI) [Ratio] 36.9 kg/m2 Pawel Denihan DO Work Phone: [facility] 10-26-2024 08:43-0400 Body weight 100.69 kg Pawel Denihan DO Work Phone: [facility] 10-26-2024 08:43-0400 Diastolic blood pressure 104 mm[Hg] Pawel Denihan DO Work Phone: [facility] 10-26-2024 08:43-0400 Diastolic blood pressure 92 mm[Hg] Pawel Denihan DO Work Phone: [facility] 10-26-2024 08:43-0400 Heart rate 101 /min Pawel Denihan DO Work Phone: [facility] 10-26-2024 08:43-0400 Respiratory rate 18 /min Pawel Denihan DO Work Phone: [facility] 10-26-2024 08:43-0400 SaO2% (BldA) [Mass fraction] 94 % Pawel Denihan DO Work Phone: [facility] 10-26-2024 08:43-0400 SaO2% (BldA) [Mass fraction] 97 % Pawel Denihan DO Work Phone: [facility] 10-26-2024 08:43-0400 Systolic blood pressure 142 mm[Hg] Pawel Denihan DO Work Phone: [facility] 10-26-2024 08:43-0400 Systolic blood pressure 136 mm[Hg] Pawel Denihan DO Work Phone: [facility] Encounters Encounter Date Encounter Type Care Provider Facility Start: 10-26-2024 End: 10-26-2024 ambulatory Pawel Lacy Facility:[facility] Start: 10-26-2024 Non-patient / Non-visit Rahat Hernandez MD -[facility] Cardiology Work Phone: Start: 10-26-2024 Patient encounter procedure Pawel Lacy -EKG [facility] Start: 10-26-2024 End: 10-26-2024 ambulatory Pawelnolan Lacy DO Work Phone: [facility] Work Phone: Start: 10-26-2024 End: 10-26-2024 Patient encounter procedure Pawel Lilizlucy -FPG [facility] Work Phone: Start: 11-02-2020 End: 11-02-2020 ambulatory CHRISTINA Tye RAYMUNDO Facility: Plan of Treatment Date Care Activity Detail Author Start: 10-26-2024 Patient referral [facility] Work Phone: Start: 10-26-2024 [facility] Comprehensive metabo lic 2000 panel - Serum or Plasma [facility] Holter monitor study [facility] MG Breast - bilateral Screening [facility] Patient referral [facility] Work Phone: Payers Date Payer Category Payer Self-pay 2024 Unknown [id number] 1965 Unknown [id number] 1961 Unknown [id number] Unknown [id number] Social History Date Type Detail Facility [facility]: [facility] Sex Female (finding) [facility] Start: 1965 Sex Assigned At Female F [facility] Evaluation note 10-26-2024 Note Date & Type [...] by mammogram noneactive October 26 025 8:29am [facility] Work Phone: Evaluation note 10-26-2024 Note [...] by mammogram noneactive October 26 025 8:29am [facility] Work Phone: Hospital Discharge instructions Note Date & Type Note Facility Hospital Discharge instructions Ambulatory OrdersReferral to Gastroenterology Location: None Selected [facility] Work Phone: Summary Purpose Family History No [...] 8:29am [facility] Additional Source Comments INFORMATION SOURCE (unrecogn ized section and content) DATE CREATED AUTHOR 11/06/2020 [facility] DATE CREATED AUTHOR AUTHOR'S ORGANIZ ATION 10/31/2024 [facility] Care Teams (unrecognized sec tion [...] Team Status: Active Member Role Status Dates Pwael Layc DO Primary Care Provider Active Start: October [...] BE BASED ON THE PRIMARY CLINICAL RECORDS. [facility]. provides no warranty or guarantee of the accuracy or completeness of information in this document.
== END 2024-11-09 14:59 | disposition home or self-care (01) ==
LOC: MAMMO 14:58
DX: R00.0 Tachycardia, unspecified (principal); Z12.31 Encounter for screening mammogram for malignant neoplasm of breast; Z80.3 Family history of malignant neoplasm of breast; Z80.41 Family history of malignant neoplasm of ovary; Z80.8 Family history of malignant neoplasm of other organs or systems
CPT/HCPCS: 77063; 77067; 93242

== ENCOUNTER 2024-12-14 08:58 | Outpatient (OUT) | payer OTHER, SELFPAY ==
--- OUTSIDE RECORDS SUMMARY | 2024-12-09 05:31 | XMS_ITS | Continuity of Care Document ---
Author Organization [facility] Address [address] [place] [address] Phone Care Team Providers Care Planisher Name Role Phone Pawel Lacy DO Primary Care Provider Pawel Lacy DO Attending Provider Pawel Lacy DO Other Provider Rahat Hernandez MD Attending Provider Nona Momin DO Attending Provider Nona Momin DO Other Provider Care Teams Patient Care Team Team Status: Active Member Role/Relationship Status Dates Pawel Lacy DO Primary Care Provider Active Visit Care Team Team Status: Inactive Member Role/Relationship Status Dates Pawel Lacy DO Primary Care Provider Active Start: October 26, 2024 End: October 26, 2024Pawel Lacy DOAttending ProviderActiveStart: October 26, 2024 End: October 26, 2024 Visit Care Team Team Status: Active Member Role/Relationship Status Dates Pawel Lacy DO Primary Care Provider Active Start: October 26, 2024 Pawel Lacy DOOther ProviderActiveStart: October 26, 2024 Rahat Hernandez MDAttending ProviderActiveStart: October 26, 2024 Visit Care Team Team Status: Active Member Role/Relationship Status Dates Pawel Lacy DO Primary Care Provider Active Start: November 01, 2024 Pawel Jose DO BambiAttending ProviderActiveStart: November 01, 2024 Visit Care Team Team Status: Inactive Member Role/Relationship Status Dates Pawel Lacy DO Primary Care Provider Active Start: November 16, 2024 End: November 16, 2024Pawel Jose DO BambiAttending ProviderActiveStart: November 16, 2024 End: November 16, 2024 Patient Care Team Team Status: Active Member Role/Relationship Status Dates Pawel Lacy DO Primary Care Provider Active Start: December 09, 2024 Nona Raul Ly , DOAttending ProviderActiveStart: December 09, 2024 Nona L Ly , DOOther ProviderActiveStart: December 09, 2024 Chief Complaint and Reason for Visit Chief Complaint Admit Date establish care October 26, 2024 8:29am review labs November 16, 2024 7:57am SCREENING December 09, 2024 6 :56am Reason for Visit Admit Date Obesity (BMI 35.0-39.9 without comorbidi ty) October 26, 2024 8:29am Tachycardia October 26, 2024 8:29am Establishing care with new doctor, lilo hall for October 26, 2024 8:29am Screening for cardiovascular condition [facility] 2024 8:29am [facility] Colon cancer screening October 26 8:29am Breast cancer screening by mammogram [facility] 2024 8:29am Abnormal mammogram November 16, 2024 7:57am Elevated liver enzymes November 16, 2 025 7:57am Hyperlipidemia November 16, 2024 7:57am Prediabetes November 16, 2024 7:57am Reason for Referral Type Reason(s) Provider Provider Contact Information P aravider Address Start Date Referral to database dba Encounter for screening for malignant neoplasm of colon Z12.11 - Encounter for screening for malignant neoplasm of ztkmmL15.11 - Encounter for screening for malignant neoplasm of colonFPG GastroenterologyWork Phone: [phone] [place] [id number] 2024 Allergies, Adverse Reactions, Alerts Allergen Type Severity Reaction Last Updated Verified Status doxycycline Adverse Reaction Unknown Headache December 09, 2024 7:01am Yes Active Social History Smoking Status Status Start Date End Date Date of Observa tion Never smoked tobacco (finding) December 09, 2024 7:03am Observation Status Observation Response Date of Response Legal Sex Female (finding) Sex Assigned At BirthFegarnet healtheApril 1965 Family History Relationship Condition Age at Onset Recorded Date/T yina mother Diabetes mellitus Unknown Malignant neoplasmUnknownMalignant neoplasm of kidneyUnknownHypertensionUnknown GoiterUnknownObesityUnknownfatherMalignant neoplasmUnknownMalignant neoplasm of throatUnknowngrandparentMalignant neoplasm of ovaryUnknownMalignant neoplasm Unknown Problems Active Problems Problem Diagnosis/Recorded Date Onset Date Stat us Hyperlipidemia November 16, 2024 8:07am Unknown Active Elevated liver enzymes November 16, 2024 8:08am Unk nown Active Tachycardia October 26, 2024 9:07am Unknown A ctive Obesity (BMI 35.0-39.9 witho ut comorbidity) October 26, 2024 9:27am Unknown Active Prediabetes November 16, 2024 8:14am Unknown Active Lumbar pain October 26, 2024 8:47am Unknown A ctive Right shoulder pain October 26, 2024 8:47am Unknown Active Abnormal mammogram November 16, 2024 8:19am Unknown Active Medications No known medications Immunizations Immunization Event Date Not Given Reason Dose Number Liquid Sugar Melter Lot Number Reason(s) Given Vaccine Information Statement (VIS) Detail Administration Location COVID-19 mRNA, Comirnaty (Pfizer) March 31, 2021 [id number] Comirnaty (Mavent) Tri-Sucrose 12+April 21, [id number] Procedures Procedure Date Performed Status MM screening mammo BI w/CAD October 26, 2024 9:07am completed Relevant Diagnostic Tests and/or Laboratory Data Laboratory Results Test Collection Date/Time Result Date/Time Result Interpretation Reference Range Result Comment Performing Site Glucose Level November 01, 2024 8:44am November 16, 2024 9:56am 146 mg/dL Above high normal Free ThyroxineSeptember 2024 8:44amSeptember 2024 9:52am0.95 ng/dL Thyroid Stimulating Hormone 3rd GenSeptember 2024 8:44amSept2024 9:52am1.25Cholesterol LevelSeptember 2024 8:44amSept2024 9:65zs343 mg/dLAbove high normalCorrected White Blood CountSeptember 2024 8:44amSept2024 9:48am8.9 10*3/uLHemoglobin J6aYglyllejq 2024 9:40amSept2024 9:56am6.4 %Above high normalBlood Urea Nitrogen November 01, 2024 8:44amSept2024 9:56am16.0 mg/dLHDL Cholesterol November 01, 2024 8:44amSept2024 9:51am46 mg/dLRed Blood Count November 01, 2024 8:44amSept2024 9:48am5.02 10*6/uLEstimated Average GlucoseSeptember 2024 9:40amSept2024 9:32rm101Zrxsp high normalCreatinineSeptember 2024 8:44amSept2024 9:56am1.03 mg/dLTriglycerides LevelSeptember 2024 8:44amSept2024 9:51am 177 mg/dLAbove high normalHemoglobinSeptember 2024 8:44amSept2024 9:48am15.3 g/dLSodium LevelSeptember 2024 8:44amSeptember 2024 9:53ks468 mmol/LLDL Cholesterol (Measured)November 01, 2024 8:44amSept2024 9:55gl837 mg/dLAbove high normalHematocritSeptember 2024 8:44am November 16, 2024 9:48am45.4 %Potassium LevelSeptember 2024 8:44am November 16, 2024 9:56am4.1 mmol/LVLDL CholesterolSeptember 2024 8:44am November 16, 2024 9:51am35.4 mg/dLMean Corpuscular VolumeSeptember 2024 8:44amSept2024 9:48am90.4 fLChloride LevelSeptember 2024 8:44amSept2024 9:04ol211 mmol/LCholesterol/HDL RatioSeptember 2024 8:44amSept2024 9:51am5.8Mean Corpuscular HemoglobinSeptember 2024 8:44amSeptember 2024 9:48am30.5 pgCarbon Dioxide LevelSeptember 2024 8:44amSept2024 9:56am28.4 mmol/LMean Corpuscular Hemoglobin ConcentSeptember 2024 8:44amSept2024 9:48am33.7 g/dLCalcium LevelSeptember 2024 8:44amSept2024 9:56am9.1 mg/dL Red Cell Distribution WidthSeptember 2024 8:44amSept2024 9:48am13.1 %Total ProteinSeptember 2024 8:44amSept2024 9:56am 7.9 g/dLPlatelet CountSeptember 2024 8:44amSept2024 9:05du255 10*3/uLAlbuminSeptember 2024 8:44amSept2024 9:56am4.1 g/dLMean Platelet VolumeSeptember 2024 8:44amSept2024 9:48am9.9 fLTotal BilirubinSeptember 2024 8:44amSept2024 9:56am0.5 mg/dL Neutrophils (%) (Auto)November 01, 2024 8:44amSept2024 9:48am69.2 %Aspartate Amino Transf (AST/SGOT)November 01, 2024 8:44amSept2024 9:56am45 U/LAbove high normalLymphocytes (%) (Auto)November 01, 2024 8:44amSeptember 2024 9:48am22.5 %Alanine Aminotransferase (ALT/SGPT) November 01, 2024 8:44amSeptember 2024 9:45mk120 U/LAbove high normal Monocytes (%) (Auto)November 01, 2024 8:44amSeptember 2024 9:48am6.1 % Alkaline PhosphataseSept2024 8:44amSept2024 9:56am79 U/L Eosinophils (%) (Auto)November 01, 2024 8:44amSept2024 9:48am1.6 %Estimated GFR (Non- AmericanSept2024 8:44amSept2024 9:56am54 mL/minBelow low normalBasophils (%) (Auto)November 01, 2024 8:44amSept2024 9:48am0.3 %Estimated GFR ()November 01, 2024 8:44amSept2024 9:56am> 60 mL/minNeutrophils # (Auto) November 01, 2024 8:44amSept2024 9:48am6.1 10*3/uLLymphocytes # (Auto)November 01, 2024 8:44amSept2024 9:48am2.0 10*3/uLMonocytes # (Auto)November 01, 2024 8:44amSept2024 9:48am0.5 10*3/uL Eosinophils # (Auto)November 01, 2024 8:44amSeptember 2024 9:48am0.1 10*3/uLBasophils # (Auto)November 01, 2024 8:44amSept2024 9:48am 0.0 10*3/uL Vital Signs Vital Reading Result Reference Range Collection Date/Time Height 65 [in_i] October 26, 2024 8:35xkEjxshk301.69 kgSeptember 2024 8:43amHeart Pizr489 /idm80-835Pvjzguxdg 9th, 2025 8:43amRespiratory rate18 /tom03-28Vlwvorenr 2024 8:43amOxygen saturation by Pulse ddrcvwue80 %95-100September 2024 8:43amBP Mtkxhuve206 mm[Hg]100-140September 2024 8:43amBP Ytftjchdk45 mm[Hg]60-100September 2024 8:43amBMI (Body Mass Index)36.9 kg/i0Qikvovpoy 2024 8:42wsIqepaj47 [in_i]November 16, 2024 8:00soPzcjof48.97 kg November 16, 2024 8:08amHeart Rate97 /uww73-274Qnnqiwsnm 2024 8:08am Respiratory rate16 /dxz99-99Cxrirmhms 30th, 2025 8:08amOxygen saturation by Pulse olnzbsab07 %95-100Sept2024 8:08amBP Pjlbqjbk183 mm[Hg]100-140 November 16, 2024 8:08amBP Wfknywukz810 mm[Hg]60-100September 2024 8:08amBMI (Body Mass Index)35.9 kg/c4Cnbbyuykg2024 8:37juCtfjaj12 [in_i] December 09, 2024 7:78beKwyxer39.89 kgOctober 2024 7:08amHeart Rate83 /ozg85-357Qowkuqc 2024 9:25amRespiratory rate16 /hpy67-84Xjzctpi 2024 9:25amOxygen saturation by Pulse iuwlyelu03 %95-100October 2024 9:25amBP Lfocobae174 mm[Hg]100-140October 2024 9:25amBP Bksmxptdn68 mm[Hg] 60-100October 2024 9:25am Advance Directives Advance Directive Response Recorded Date/ Time Advance Directives No October 3:34pm Insurance Providers Guarantor Shira Whitney Address [address] [place] [id number] Info.Home Phone: Coverage Status Update:2024 Payer Group Member ID Coverage Type Subscriber Relationship to Subscriber Effective Date Expiration Date MMO Id: [id number] Ider Id: [id number] [facility] [place] [id number] Home Phone: Email: [email or web address] Encounters Encounter Location(s) Arrival/Admit Date Discharge/Departure Date Discharge/Departure Disposition Provider(s) Departed Physician/ Provider Office Visit -[facility] [place] October 26, 2024 8:29am October 26, 2024 9:51am Discharged to home care or self care (routine discharge) Pawel Lacy DO Non-patient / Non-visit -[facility] 2024 9:31am Denisha Cai-patient / Lvs-bnwcp-[facility]2024 9:40amDAVID Mcguireeparted Physician/Provider Office Visit-[facility] Family [facility]2024 7:57amSept2024 8:57amDischarged to home care or self care (routine discharge)Yifan Mcguire-[facility] / [facility] December 09, 2024 6:56amCatherine Raul Momin DO Recent Diagnosis Onset Date Admit Date Obesity (BMI 35.0-39.9 without comorbidity) Unkn own October 26, 2024 8:29am Tachycardia Unknown October 26, 025 8:29am Establishing care with imani burk, encounter for Unknown October 26, 2024 8:29am Screening for cardiovascular condition Unknown October 26, 2024 8:29am Screening for diabetes mellitus Unknown October 26, 2024 8:29am Colon cancer screening Unknown October 26, 2024 8:29am Breast cancer screening by mammogram Unknown October 26, 2024 8:29am Abnormal mammogram Unknown October 7:57am Elevated liver enzymes Unknown November 16, 2024 7:57am Hyperlipidemia Unknown November 16, 2024 7:57am Prediabetes Unknown November 16, 2024 7:57am Assessments Diagnosis Onset Date Resolution Status Admit Date Obesity (BMI 35.0-39.9 without comorbidi ty) acuteSe2024 8:29amTachycardiaacuteSept2024 8:29am Establishing care with new doctor, encounter fordeletedOctober 26, 2024 8:29amScreening for cardiovascular conditiondel2024 8:29am Screening for diabetes mellitusdel2024 8:29amColon cancer screeningnoneactiveOctober 26, 2024 8:29amBreast cancer screening by mammogramnoneactiveOctober 26, 2024 8:29amAbnormal mammogramacuteSept2024 7:57amElevated liver enzymesacuteNovember 16, 2024 7:57am HyperlipidemiaacuteSept2024 7:57amPrediabetesacuteSept2024 7:57am Plan of Treatment Author [facility] 20[facility] 11:54amAs noted in the HPI, patient establishing care with me after previously seeing Dr. Zari Girard at [facility] in [place], but again has not seen a PCP [...] GI for screening colonoscopy is in place. Author Pawel [facility] 20[facility] 10:15amLabs reviewed with patient in detail today. Cholesterol is noted to be elevated. ASCVD risk calculated to be 5.7%. Discussed these results and their implications with the patient. We did discuss using statin medication, but patient declined this. Had a long discussion regarding healthy dietary and lifestyle changes to make as well as the importance of consistent exercise. Will plan to recheck labs prior to her next appointment and we will base future treatment/investigation on the results of these labs. She is to call with any questions or concerns. Patient states an understanding and is agreeable with this plan of care. Labs reviewed with patient in detail today. Liver enzymes show AST slightly elevated at 45 with ALT elevated at 102. Alkaline phosphatase normal at 79 with normal total bilirubin of 0.5 and normal albumin at 4.1. I suspect this is likely nonalcoholic fatty liver disease. We discussed numerous options for further evaluation and treatment. Discussed obtaining ultrasound, but patient declined this. Discussed obtaining repeat labs prior to her next appoint which she is agreeable to. Will also add on hepatitis serologies and iron studies to rule out hemochromatosis. Had a long discussion regarding healthy dietary and lifestyle changes to make as well as the importance of consistent exercise. We will base future treatment/investigation on the results of the repeat labs. She is to call with any questions or concerns. Patient states an understanding and is agreeable with this plan of care. Labs reviewed with the patient in detail today. Fasting glucose elevated at 146 with A1c elevated at 6.4. These labs are consistent with prediabetes at the very high range nearing on diabetes mellitus diagnosis. Discussed these results and the implications with the patient today. She may benefit from a GLP-1 agonist (especially in the setting of her obesity and suspected fatty liver disease), but patient is hesitant to start medication at this point. Had a long discussion regarding healthy dietary and lifestyle changes to make as well as the importance of consistent exercise. We will base future treatment/investigation on the results of the repeat labs. She is to call with any questions or concerns. Patient states an understanding and is agreeable with this plan of care. Patient had mammogram performed on 11/09/2024 which showed no significant suspicious finding in the left breast, however did reveal focal asymmetry without early architectural distortion approximately 12 o'clock position of the right breast. Radiology recommended additional mammographic views with possible ultrasound as follow-up examination on the right breast. I explained this to the patient today and she is agreeable. The order has been placed. She is to call with any questions or concerns. Patient states an understanding and is agreeable with this plan of care. Future Tests Future scheduled test information is unavailable Pending Tests Test Name Ordered Date Scheduled Date CA holter monitor recording October 26, 2024 9:44am Comprehensive Metabolic PanelSeptember 2024 9:31amMM diagnostic mammo RT w/CADSeptember 2024 8:52amHepatitis B Surface AntibodySeptember 2024 8:52am Future Visits Future appointment information is unavailable Future Procedures Procedure Name Ordered Date Scheduled Date Discharge Order December 09, 2024 8:51am Octobe r 2024 8:51am A1C with Estimated Average Glu November 16, 2 025 8:52am Complete Blood Count Auto DiffSeptember 2024 8:52amIron and TIBC Profile November 16, 2024 8:49amFerritinSeptember 2024 8:49amHepatitis B Core AntibodySeptember 2024 8:52amHepatitis B Surface AntigenSeptember 2024 8:49amHep C Ab wRfx to Qnt PCRSeptember 2024 8:49amLipid Panel November 16, 2024 8:47am Future Medications Future medication information is unavailable Patient Instructions Instruction Admit Date Know your Meds December 09, 2024 6 :56am Hospital Discharge Instructions Additional Instructions DISCHARGE INSTRUCTIONS FOR COLONOSCOPY WHAT TO EXPECT: - You may feel full, gassy or cramping after your procedure. In some cases, this may be from a few hours to a day. Walking may help relieve the discomfort. - If you have polyp(s) removed you may note some minor bloody discharge after your first bowel movements. - You should begin to recover from anesthesia within 1 hour of the procedure, however may feel groggy for the next 24 hours. DO's AND DON'Ts: - Call your doctor right away if you have a hard abdomen, severe pain, are passing lots of bright red blood or clots. - Call your doctor if you develop any rashes, hives or difficulty breathing. - Let your doctor know if you have not had a bowel movement by 3 days after your procedure. - If you take 81 mg aspirin for your heart it is safe to resume this medication. - If you take other blood thinner medications your doctor will instruct you when these can safely be resumed. - Do NOT drive for 24 hours. - Do NOT operate machinery such as power tools, [employer] mowers, [employer]ers, sewing machines, etc. for 24 hours. - Avoid alcoholic beverages and drugs for allergies, nerves, or sleep. - Do NOT stay alone. Do NOT leave your child unattended. - Do NOT make important personal or business decisions or sign any legal documents. - Eat solid foods and drink liquids in smaller amounts than usual until normal appetite returns. If you should experience an upset stomach, liquids high in sugar content (soda, Miguel A-Aid, non-acid juices) are recommended. - You can resume normal activities tomorrow. FOLLOW UP & RECOMMENDATIONS: -Please call the office and make a follow up appointment to see me as needed -Notify the doctor if you have any problems. -Repeat colonoscopy in 7-10 years. -Follow up with PCP. -Office number [phone].
--- OUTSIDE RECORDS SUMMARY | 2024-12-14 09:01 | XMS_ITS | Continuity of Care Document ---
Author Organization [facility] Address [address] [place] [address] Phone Care Team Providers Care Coper Hand Name Role Phone Pawel Lacy DO Primary Care Provider Pawel Lacy DO Attending Provider Pawel Lacy DO Other Provider [phone] Rahat Hernandez MD Attending Provider Care Teams [...] Rahat Hernandez MDAttending ProviderActiveStart: October 26, 2024 Patient Care Team Team Status: Inactive Member Role Status Dates Pawel Lacy DO Primary Care Provider Active Start: November 16, 2024 End: November 16, 2024Pawel Lacy DOAttending ProviderActiveStart: November 16, 2024 End: November 16, 2024 Chief Complaint and Reason for Visit Chief Complaint Admit Date establish care October 26, 2024 8:29am review labs November 16, 2024 7:57am Reason for Visit Admit Date Obesity (BMI 35.0-39.9 without comorbidi ty) October 26, 2024 8:29am Tachycardia October 26, 2024 8:29am Establishing care with new doctor, lilo [facility] for October 26, 2024 8:29am Screening for cardiovascular condition S eptember 2024 8:29am [facility] for [facility] 8:29am Colon cancer screening October 26 8:29am Breast cancer screening by mammogram [facility] 2024 8:29am Abnormal mammogram November 16, 2024 7:57am Elevated liver enzymes November 16 7:57am Hyperlipidemia November 16, 2024 7:57am Prediabetes November 16, 2024 7:57am Reason for Referral Referring Provider Name Referring Provider Address Referring Provider Phone Referral Date Requested Appointment Date Referral Reason Pawel Lacy [address] [place], [place] [address]Work Phone: September 2024Z12.11 - Encounter for screening for malignant neoplasm of colonSeptember 2024Z12.11 - Encounter for screening for malignant neoplasm of colon Allergies, Adverse Reactions, Alerts Allergen Type Severity Reaction Last Updated Verified Status doxycycline Adverse Reaction Unknown Headache er 2024 8:09am Yes Active Social History Smoking Status Status Start Date End Date Date of Observa tion Never smoked tobacco (finding) October 26, 2024 8:50am Observation Status Observation Response Date of Response Legal Sex [facility] (finding) [facility] 1965 Family History Relationship Condition Age at Onset Recorded Date/T yina mother Diabetes mellitus Unknown Malignant neoplasmUnknownMalignant neoplasm of kidneyUnknownHypertensionUnknown GoiterUnknownObesityUnknownfatherMalignant neoplasmUnknownMalignant neoplasm of throatUnknowngrandparentMalignant neoplasm of ovaryUnknownMalignant neoplasm Unknown Problems Active Problems Medical Problem Onset Date Status Hyperlipidemia Unknown Active Elevated liver enzymes Unknown Active Tachycardia Unknown Active Obesity (BMI 35.0-39.9 without comorbidity) Unkn own Active Prediabetes Unknown Active Lumbar pain Unknown Active Right shoulder pain Unknown Active Abnormal mammogram Unknown Active Medications No known medications Immunizations Immunization Event Date Not Given Reason Dose Number Mixing Place Supervisor Lot Number Vaccine Information Statement (VIS) Detail Administration Location COVID-19 mRNA, Comirnaty (Pfizer) March 31, 2021 [id number] Comirnaty (Pfizer) Tri-Sucrose +April 21, [id number] Vital Signs Vital Reading Result Reference Range Collection Date/Time Height 65 [in_i] October 26, 2024 8:66yfFueokc890.69 kgSeptember 2024 8:43amHeart Dbni953 /ibh89-422Cfuurvktu 9th, 2025 8:43amRespiratory rate18 /rsk36-23Oghostywq 9th, 2025 8:43amOxygen saturation by Pulse rezvmdiw40 %95-100Se2024 8:43amBP Nkbuhvji212 mm[Hg]100-140Sept2024 8:43amBP Ajzlenolh14 mm[Hg]60-100Sept2024 8:43amBMI (Body Mass Index)36.9 kg/i7Dmqhgrbbv2024 8:98yyCoranr53 [in_i]November 16, 2024 8:33jlGbptet66.97 kg November 16, 2024 8:08amHeart Rate97 /nvn13-705WeajqlynjNovember 16, 2024 8:08am Respiratory rate16 /nih35-08Dprssoxnk 30th, 2025 8:08amOxygen saturation by Pulse ylpqjgdk46 %95-100Sept2024 8:08amBP Eyuwoitn104 mm[Hg]100-140 November 16, 2024 8:08amBP Tyeginrwz496 mm[Hg]60-100Sept2024 8:08amBMI (Body Mass Index)35.9 kg/b6Fqvxstpcq2024 8:08am Advance Directives Advance Directive Response Recorded Date/ Time Advance Directives No October 3:34pm Insurance Providers Guarantor Shira Whitney Address [address] [place] [phone] Info.Home Phone: Payer Policy Id Subscriber's Name Subscriber Id Effectiv e Date Expiration Date MMO [id number] Shira Whitney [id number] Encounters Encounter Location(s) Arrival/Admit Date Discharge/Depart Date Provider(s) Departed Physician/Prov ider Office Visit -[facility] Family Medicine [place] October 26, 2024 8:29am October 26, 2024 9:51am Pawel Lacy , Non-patient / Non-visit -[facility] Cardiology [facility] 2024 9:31am Rahat Hernandez , MDDeparted Physician/Provider Office Visit-[facility] [place] 7:57amSept2024 8:57amPawel Lacy DO Recent Diagnosis Onset Date Admit Date Obesity (BMI 35.0-39.9 without comorbidity) Unkn own October 26, 2024 8:29am Tachycardia Unknown October 26, 025 8:29am Establishing care with new d wm, encounter [...] Date Obesity (BMI 35.0-39.9 without comorbidi ty) acuteSept2024 8:29amTachycardiaacuteSept2024 8:29am Establishing care with new doctor, encounter fordel2024 8:29amScreening for cardiovascular conditiondeletedOctober 26, 2024 8:29am Screening for diabetes mellitusdel2024 8:29amColon cancer screeningnoneactiveOctober 26, 2024 8:29amBreast cancer screening by mammogramnoneactiveOctober 26, 2024 8:29amAbnormal mammogramacuteSept2024 7:57amElevated liver enzymesacuteSe2024 7:57am HyperlipidemiaacuteSept2024 7:57amPrediabetesacuteNovember 16, 2024 7:57am Plan of Treatment Author [facility] 11:54amAs noted in the HPI, patient establishing care with me after previously seeing Dr. Zari Girard at [facility] in [place], but again has not seen a PCP [...] Panel October 26 9:32am CA holter monitor recordingSeptember 2024 9:44amMM screening mammo BI w/CAD October 26, 2024 9:07amMM diagnostic mammo RT w/CADSeptember 2024 8:52amHepatitis B Surface AntibodySeptember 2024 8:52am Future Visits Future appointment information is unavailable Referrals to Other Providers Reason for Referral Referral Start Date Provider Provider Contact Information Provider Address Z12.11 - Encounter for screening for malignant neoplasm of colon October 26, 2024 [facility] Gastroenterology Work Phone: [phone] [address] Future Procedures Procedure Name Ordered Date Scheduled Date A1C with Estimated Average Glu October 26 9:32am Complete Blood Count Auto DiffSeptember 2024 9:07amLipid PanelSeptember 2024 9:07amFree T4 (Free Thyroxine)October 26, 2024 9:07amThyroid Stimulating HormoneSeptember 2024 9:14mzD4L with Estimated Average Glu November 16, 2024 8:52amComplete Blood Count Auto DiffSeptember 2024 8:52amCMP with reflex to D3UPuktuuslh 2024 8:47amIron and TIBC Profile November 16, 2024 8:49amFerritinSeptember 2024 8:49amHepatitis B Core AntibodySeptember 2024 8:52amHepatitis B Surface AntigenSeptember 2024 8:49amHep C Ab wRfx to Qnt PCRSeptember 2024 8:49amLipid Panel November 16, 2024 8:47am Future Medications Future medication information is unavailable Patient Instructions Patient instructions are unavailable
--- NOTE | 2024-12-14 09:04 | MM_ITS ---
Patient Name: PINKY ARREDONDO MR#: [id number] : 1965 Exam Date: 12/14/2024 Ordering Doctor: NON-STAFF PHYSICIAN RADIOLOGY REPORT PROCEDURE: MM TOMOSYNTHESIS DIAGNOSTIC RT, 12/14/2024, 08:56 US BREAST RT LIMITED, 12/14/2024, 09:41 COMPARISON: MM TOMOSYNTHESIS SCREENING BI, 11/09/2024. INDICATIONS: Abnormal Mammogram Calculator Name NCI Breast Cancer Risk Assessment Tool 5 Year Breast Cancer Risk 2.00% Lifetime Breast Cancer Risk 9.50% Personal Breast Cancer No Personal Ovarian Cancer No Treatments None Family Cancers Aunt-paternal with breast cancer at age ~75; Grandmother-maternal with ovarian cancer at age ~50; Grandfather-paternal with throat cancer at age 54. LOCATION: [facility] BREAST COMPOSITION: There are scattered areas of fibroglandular density. FINDINGS: Diagnostic mammogram demonstrates a spiculated mass at the approximately 1 o'clock position of the right breast. Right breast ultrasound demonstrates a hypoechoic mass with angular margins of the 1 o'clock position of the right breast approximately 8 cm from the nipple. This mass measures approximately 1.6 x 1.6 x 2.0 cm. Additional scanning of the right axilla demonstrates no suspicious lymph nodes . DIAGNOSTIC CATEGORY 4--SUSPICIOUS FOR MALIGNANCY. RECOMMENDATIONS: ULTRASOUND-GUIDED CORE BIOPSY: RIGHT BREAST Findings were discussed with the patient shortly after imaging. Dictated by: Isaias Amin DO on 12/14/2024 at 10:29 Approved by: Isaias Amin DO on 12/14/2024 at 10:36
== END 2024-12-14 08:59 | disposition home or self-care (01) ==
LOC: MAMMO 08:58
DX: R92.8 Other abnormal and inconclusive findings on diagnostic imaging of breast (principal); Z80.3 Family history of malignant neoplasm of breast; Z80.41 Family history of malignant neoplasm of ovary; Z80.8 Family history of malignant neoplasm of other organs or systems
CPT/HCPCS: 76642; 77065; G0279